=== PATIENT | male | born 1955 | race Caucasian/White ===

== ENCOUNTER → 2017-03-24 | Outpatient (CLI) | payer OTHER ==
[~2017-03-24] MED LIST: ASPIRIN PO; BACLOFEN10 MG PO; HYDROCODON-ACE1 EAC7 PO
--- NOTE | ~2017-03-24 | EKG ---
PATIENT: WILLIS VELEZ UNIT #: [id number] Ventricular Rate: 70 BPM Atrial Rate: 70 BPM P-R Interval: 152 ms QRS Duration: 76 ms Q-T Interval: 410 ms QTC Calculation(Bezet): 442 ms Calculated R [place]: 112 degrees Calculated T [place]: -24 degrees Diagnosis Line: Normal sinus rhythm Diagnosis Line: Right axis deviation Diagnosis Line: Low voltage QRS Diagnosis Line: Abnormal QRS-T angle, consider primary T wave Diagnosis Line: abnormality Diagnosis Line: Abnormal ECG Diagnosis Line: When compared with ECG of 26-APR-2012 14:14, Diagnosis Line: QRS axis Shifted right Diagnosis Line: T wave inversion more evident in Inferior leads Diagnosis Line: Low voltage QRS is now Present Diagnosis Line: Confirmed by HAMMAD TURPIN MD ([id number]) on 03/24/2017 Diagnosis Line: 5:32:13 PM INTERPRETING MD: PAPI CHAVEZ
[2017-03-24 11:38] LABS: HEMOGLOBIN 14.2 gm/dL (13.0-16.0); MEAN CELL VOLUME 91.8 FL (83-96); MEAN CORPUSCULAR HEMOGLOBIN 31.1 PG (28-34); MEAN CORPUSCULAR HGB CONC 33.9 g/dL (30-36); MEAN PLATELET VOLUME 8.5 FL (6.5-11.5); RED BLOOD COUNT 4.58 X10e (3.90-5.60); RED CELL DISTRIBUTION WIDTH 13.5 % (11.0-15.5); WHITE BLOOD COUNT 8.4 X10e3 (4.0-10.5)
[2017-03-24 12:02] LABS: CALCIUM SERUM 9.1 mg/dL (8.4-10.2); GLOM FILT RATE Estimated 80.9 mL/min (>60); POTASSIUM 4.2 mmol/L (3.5-5.1)
== END | disposition home or self-care (01) ==
LOC: CAMB 10:49
PROVIDERS: Orthopaedic Surgery
DX: Z01.818 Encounter for other preprocedural examination (principal); S42.001A Fracture of unspecified part of right clavicle, initial encounter for closed fracture
CPT/HCPCS: 36415; 80048; 85027; 93005